=== PATIENT | female | born 1985 | race African-American/Black ===

== ENCOUNTER 2021-01-04 07:52 | Emergency (ER) | payer MEDICAID, OTHER ==
[~2021-01-04] VITALS: Ht 172.7 cm; Wt 114.3 kg
[2021-01-04 07:57] VITALS: BP 126/47
[2021-01-04] MEDS ORDERED: LORazepam 0.5 MG TAB PO ONE (09:30)
== END 2021-01-04 10:10 | disposition left against medical advice (07) ==
LOC: ER 07:52
DX: R45.851 Suicidal ideations (principal)